=== PATIENT | female | born 1995 | race Caucasian/White ===

== ENCOUNTER 2018-02-13 | Emergency (ER) | payer MEDICAID ==
[~2018-02-13] VITALS: Ht 170.2 cm; Wt 94.5 kg
[2018-02-13] MEDS ORDERED: SODIUM CHLORIDE FLUSH 10ML SYR IVF ONE (00:30)
[2018-02-13] MEDS ORDERED: DIPH,PERTUSS(ACELL),TET VAC/PF 0.5 ML IM-VACC ONE ×2 (00:30→00:43)
[2018-02-13] MEDS ORDERED: LIDOCAINE-MPF 1%, 5ML INFIL ONE (01:00)
[2018-02-13] MEDS ORDERED: OMNIPAQUE 350 MG/ML, 75ML BOTTLE ONE (01:13)
[2018-02-13] MEDS ORDERED: LIDOCAINE-MPF 1%, 5ML ONE ×2 (01:13→01:14)
[2018-02-13] MEDS ORDERED: HYDROcodone/APAP 5/325 TABLET ONE (01:19)
[2018-02-13] MEDS ORDERED: HYDROcodone/APAP 5/325 TABLET PO ONE (01:30)
[2018-02-13] MEDS ORDERED: BACITRACIN ZINC OINT 500U/GM, 0.9 GM ONE (02:16)
[2018-02-13 03:09] VITALS: BP 125/90
== END 2018-02-13 03:11 | disposition home or self-care (01) ==
LOC: ED 03:10
DX: S42.102 Fracture of unspecified part of scapula, left shoulder (principal); S21.112A Laceration without foreign body of left front wall of thorax without penetration into thoracic cavity, initial encounter; M54.6 Pain in thoracic spine; X99.1XXA Assault by knife, initial encounter; Y92.410 Unspecified street and highway as the place of occurrence of the external cause; Y93.89 Activity, other specified; Y99.8 Other external cause status
CPT/HCPCS: 12032; 71260; 90471; 90715; 99285; Q9967

== ENCOUNTER 2018-02-13 14:25 | Emergency (ER) | payer MEDICAID ==
[~2018-02-13] VITALS: Ht 170.2 cm; Wt 92.7 kg
[2018-02-13 14:30] VITALS: BP 116/78
== END 2018-02-13 14:42 | disposition home or self-care (01) ==
LOC: ED 14:36
DX: S21.212D Laceration without foreign body of left back wall of thorax without penetration into thoracic cavity, subsequent encounter (principal); X58.XXXD Exposure to other specified factors, subsequent encounter
CPT/HCPCS: 99281

== ENCOUNTER 2018-02-20 12:35 | Emergency (ER) | payer MEDICAID ==
[2018-02-20 12:52] VITALS: BP 107/68
== END 2018-02-20 13:46 | disposition home or self-care (01) ==
LOC: ED 13:40
DX: S21.211D Laceration without foreign body of right back wall of thorax without penetration into thoracic cavity, subsequent encounter (principal); X58.XXXD Exposure to other specified factors, subsequent encounter
CPT/HCPCS: 99282

== ENCOUNTER 2018-07-13 14:50 | Emergency (ER) | payer SELFPAY ==
[~2018-07-13] VITALS: Ht 170.2 cm; Wt 95.2 kg
[2018-07-13 14:54] VITALS: BP 112/80
[2018-07-13] MEDS ORDERED: ONDANSETRON 2MG/ML, 2ML IVPush ONE (15:30)
[2018-07-13] MEDS ORDERED: SODIUM CHLORIDE 0.9% 1,000ML IVBOLUS ONE (15:30)
[2018-07-13] MEDS ORDERED: SODIUM CHLORIDE FLUSH 10ML SYR IVF ONE (15:30)
[2018-07-13 15:37] LABS: BASOPHILS % (AUTO) 0 % (0-1); EOSINOPHILS % (AUTO) 0 % (1-7); LYMPHOCYTES # (AUTO) 0.81 x10^3/uL (1-3.4); LYMPHOCYTES % (AUTO) 8 % (22-44); MD NO; MEAN CORPUSCULAR VOLUME 87.9 fL (80-100); MEAN PLATELET VOLUME 9.1 fL (7.4-10.4); MONOCYTES # (AUTO) 0.08 x10^3/uL (0.2-0.8); MONOCYTES % (AUTO) 1 % (2-9); NEUTROPHILS # (AUTO) 9.43 x10^3/uL (1.8-6.8); NEUTROPHILS % (AUTO) 91 % (42-75); PLATELET COUNT 206 x10^3/uL (130-400); RED BLOOD COUNT 5.01 x10^6/uL (3.82-5.3); RED CELL DISTRIBUTION WIDTH 15.9 % (9.6-15.2)
[2018-07-13 15:46] LABS: ALANINE AMINOTRANSFERASE 77 U/L (12-78); ALBUMIN 3.6 g/dL (3.4-5.0); ANION GAP 5 mmol/L (5-15); CALCIUM 8.7 mg/dL (8.5-10.1); CHLORIDE 111 mmol/L (98-107); CREATININE 0.72 mg/dL (0.55-1.02)
[2018-07-13 15:50] LABS: ALKALINE PHOSPHATASE 74 U/L (45-117); BILIRUBIN,TOTAL 0.7 mg/dL (0.2-1.0)
[2018-07-13 16:51] LABS: MICROSCOPIC INDICATED
[2018-07-13 17:07] LABS: CULTURE INDICATED? NO
--- NOTE | 2018-07-13 17:27 | NUR ---
NO ANS X 2
--- NOTE | 2018-07-13 17:33 | NUR ---
NO ANS X 3
== END 2018-07-13 17:35 | disposition left against medical advice (07) ==
LOC: ED 17:29
DX: R10.13 Epigastric pain (principal); R11.10 Vomiting, unspecified; F12.90 Cannabis use, unspecified, uncomplicated
CPT/HCPCS: 36415; 80053; 81001; 83690; 84703; 85025; 99283